=== PATIENT | female | born 2005 | race Caucasian/White ===

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

== ENCOUNTER → 2023-07-13 15:03 | Outpatient (BNVA) | payer MEDICAID, SELFPAY | PROVIDERS: Referring Provider Nurse Practitioner Family; Visit Provider Nurse Practitioner Women's Health | DX: N92.6 Irregular menstruation, unspecified (principal) | CPT/HCPCS: 83036; 83525; 84146; 84403; 84443 ==

== ENCOUNTER → 2023-10-26 13:50 | Outpatient (BNVA) | payer BC, MEDICAID, SELFPAY | PROVIDERS: PCP Nurse Practitioner Women's Health; Visit Provider Nurse Practitioner Women's Health | DX: R79.89 Other specified abnormal findings of blood chemistry (principal) | CPT/HCPCS: 84402; 84403 ==

== ENCOUNTER 2024-05-25 18:15 | Emergency (ER) | payer BC, MEDICAID, SELFPAY ==
[2024-05-25 18:33] VITALS: BP 143/82; PULSE 116; RESP 16; TEMP 36.4; O2SAT 98; BMI 32.8
--- NOTE | 2024-05-25 18:39 | CTR_ITS ---
PROCEDURE INFORMATION: Exam: CT Head Without Contrast Exam date and time: 05/25/2024 7:14 PM Age: 18 years old Clinical indication: Syncope and collapse; Additional info: Syncop(e TECHNIQUE: Imaging protocol: Computed tomography of the head without contrast. Axial, coronal and sagittal reformatted images were created and reviewed. Radiation optimization: All CT scans at this facility use at least one of these dose optimization techniques: automated exposure control; mA and/or kV adjustment per patient size (includes targeted exams where dose is matched to clinical indication); or iterative reconstruction. COMPARISON: No relevant prior studies available. RADIATION DOSE METRICS: Total DLP (mGy-cm): 1000.75 FINDINGS: Brain: No CT evidence of acute intracranial hemorrhage or acute territorial infarction. No significant mass effect or midline shift. Basal cisterns patent. Cerebral ventricles: Normal in size and configuration. Paranasal sinuses: Unremarkable. No fluid levels. Mastoid air cells: Grossly unremarkable. Bones: Unremarkable. No acute fracture. Soft tissues: Grossly unremarkable. CT/CT head wo con* [id number] IMPRESSION: No CT evidence of acute intracranial pathology.
[2024-05-25 18:49] LABS: HCG Qualitative Urine. Negative (Negative)
--- NOTE | 2024-05-25 18:59 | ECG_ITS ---
TreatFeed Test Date: 2024-05-25 Pat Name: Asia Dodd Department: Room: Gender: Female Instrument Sterilizer: : 2005 Requested By: Carlos Olmstead Order Number: [id number] Ariel MD: VERN OSHEA Measurements Intervals Hermann Rate: 104 P: 72 MS: 130 QRS: 91 QRSD: 86 T: 28 QT: 329 QTc: 434 Interpretive Statements SINUS TACHYCARDIA POSSIBLE LEFT ATRIAL ENLARGEMENT [-0.1mV P-WAVE IN V1/V2] BORDERLINE RIGHT AXIS DEVIATION [QRS AXIS > 90] NONSPECIFIC ST & T-WAVE ABNORMALITY ABNORMAL RHYTHM ECG No previous ECG available for comparison Electronically Signed On 05-27-2024 19:28:56 [employer] by VERN OSHEA [email or web address]
[2024-05-25 19:06] LABS: Bilirubin Urine Negative (Negative); Blood Urine Negative (Negative); Glucose Urine UA Negative (Normal); Ketones Urine Negative (Negative); Leukocyte Esterase Urine Negative (Negative); Nitrate Urine Negative (Negative); Protein Urine Negative (Negative); Specific Gravity, Urine 1.002 (1.005-1.030); Urine Appearance Clear (CLEAR); Urine Color Yellow (Yellow); Urobilinogen Urine 0.2 mg/dL (Negative); pH Urine 7.5 (5-7)
[2024-05-25 19:10] LABS: Bacteria Urine None Seen /hpf; Hyaline Casts Urine 0-4 /lpf; RBC Urine 0-2 /hpf (0-2); Squamous Epithelial Cell Urine 0-5 /hpf (0-5); WBC Urine 0-5 /hpf (0-5)
[2024-05-25 19:13] LABS: Amphetamines Screen Urine Negative (Negative); Barbiturates Screen Urine Negative (Negative); Benzodiazepines Screen Urine Negative (Negative); Cocaine Screen Urine Negative (Negative); Opiate Screen Urine Negative (Negative); PCP Screen Urine Negative (Negative); THC Screen Urine Negative (Negative)
[2024-05-25 19:41] LABS: Influenza A NEGATIVE (Negative); Influenza B NEGATIVE (Negative); Respiratory Syncytial Virus Ce NEGATIVE (Negative); SARS-CoV-2 PCR NEGATIVE (Negative)
[2024-05-25 20:08] LABS: Basophils % 0.4 %; Eosinophils # 0.1 10^3/uL (0.0-0.8); Eosinophils % 1.3 %; Hematocrit 38.8 % (36-47); Lymphocytes # 1.1 10^3/uL (1.5-6.5); Lymphocytes % 20.1 %; Mean Corpuscular HGB Conc 33.8 g/dL (30-55); Mean Corpuscular Volume 85.8 fl (85-98); Mean Platelet Volume 10.1 fL (7.4-10.4); Monocytes # 0.2 10^3/uL (0.2-0.9); Monocytes % 4.5 %; Neutrophils # 3.94 10^3/uL (1.8-8.0); Neutrophils % 73.5 %; Nucleated Red Blood Cells % 0 %; Platelet Count 262 10^3/cmm (157-399); Red Blood Count 4.52 10^6/uL (3.85-5.65); Red Cell Distribution Width 11.7 % (12.1-15.1); White Blood Count 5.36 10^3/uL (4.5-13.0)
--- NOTE | 2024-05-25 20:23 | ED_ITS ---
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 She also noticed that her pupils were different sizes today. She has felt like passing out but has not passed out. She denies any nausea or vomiting. She is being treated with amoxicillin for group b strep infection in her vagina. She denies any numbness. She has had generalized weakness but denies any unilateral weakness. She states she has had some nasal drainage and a mild cough with some intermittent wheezing although she does not have any wheezing at this time. She presents to the emergency department with her mother for further evaluation and treatment. Associated symptoms: Reports nasal congestion and palpitations; Denies chest pain, chills, headache(s), nausea or vomiting Associated neuro symptoms: Deny dysphagia Related Data Previous Rx's ?Medication ?Instructions ?Recorded drospirenone 3 mg-ethinyl 1 tab PO DAILY #84 tabs 11/0 10/03 estradiol 0.03 mg tablet (Megha (28)) meclizine 25 mg tablet 25 mg PO TID PRN dizziness # 15 tabs 05/25/24 Allergies Allergy/AdvReac Type Severity Reaction Status Date / Time Milk Containing Products Allergy Mild ALGY-Hives Verified 12/02/23 07:29 (Dairy) wheat Allergy Mild ALGY-Hives Verified 12/02/23 07:29 Review of Systems 2 Const: Denies: fever(s) or chills Eyes: Reports: other (Different sized pupils) ENMT: Reports: ear or mastoid pain and nasal congestion; Denies: throat pain Card: Reports: palpitations; Denies: chest pain or edema Resp: Reports: non-productive cough and wheezing (Intermittent, none now) GI: Reports: abdominal pain; Denies: nausea, vomiting, dysphagia or diarrhea : Denies: flank pain, difficulty voiding, dysuria or urinary frequency Musc: Denies: neck pain, back pain, extremity pain or extremity swelling Skin/Breast: Denies: rash or erythema Neuro: Reports: dizziness; Denies: headache(s) or sensory changes Psych: Denies: anxiety or depression Endo: Denies: polyuria or polydipsia [place]ver/Lymph: Denies: petechiae All/Imm: Denies: urticaria, throat swelling or tongue swelling PFSH ED 2 PFSH: Medical History Gvetq-Yyyskqqom-Dsive syndrome Surgical History (Updated 05/25/24 @ 20:31 by MIHAELA Lindsay) H/O cardiac radiofrequency ablation for white ogldman parkinsons disease Family History Grandmother Hypertension Diabetes Father Diabetes Denies family history of Colon cancer Ovarian cancer Heart disease Hyperlipidemia Breast cancer Uterine cancer Thyroid disease Stroke Social History Smoking and tobacco/nicotine status: never used tobacco/nicotine Alcohol intake: never Female Reproductive History: Date of last menstrual period: 05/12/24 Physical Exam 2 Const: COMMON NORMALS: no acute distress and patient oriented x3 EXAM LIMITATIONS: no altered mental status GENERAL APPEARANCE: cooperative O RIENTATION/CONSCIOUSNESS: Yes awake, Yes oriented to person, Yes oriented to place and Yes oriented to time; not confused HENMT: COMMON NORMALS: normocephalic, atraumatic, external ears normal, EAC's normal, TM's normal bilaterally and Normal external nose present HEAD & SCALP: normocephalic and atraumatic FACE & SINUS: normal facial exam NOSE: Normal external nose present and Normal nares present EXTERNAL EAR: Yes external ears normal EXTERNAL AUDITORY CANAL: EAC's normal TYMPANIC MEMBRANE: TM's normal bilaterally MOUTH: Normal oral and palatal mucosa present THROAT: posterior oropharynx normal Eye: COMMON NORMALS: negative for Equal, round and reactive pupils present (The left pupil is a little bit bigger than the right but they are RRL), EOMs intact bilaterally and conjunctivae normal GENERAL EYE: normal light reflex ALIGNMENT: Yes alignment normal EYELID: eyelids normal CONJUNCTIVA: Yes conjunctivae normal PUPIL: No Equal, round and reactive pupils present (The left pupil is a little bit bigger than the right but they are RRL) DIRECT OPHTHALMOSCOPY: Yes normal light reflex Neck/C-Spine: COMMON NORMALS: full ROM, supple and no meningeal signs G ENERAL: Yes normal visual inspection, No anterior neck swelling, No lymphadenopathy and No tender CERVICAL SPINE: Yes cervical ROM normal and Yes normal cervical lordosis Resp: COMMON NORMALS: normal respiratory effort, No retractions and clear to auscultation bilaterally AUSCULTATION: clear to auscultation bilaterally, no crackles, no rales, no rhonchi and no wheezes Cardio: COMMON NORMALS: regular rate (HR was 84 on exam) and regular rhythm RATE: regular rate (HR was 84 on exam) RHYTHM: regular rhythm GI: COMMON NORMALS: Normal to inspection, nondistended, normoactive bowel sounds present, Soft to palpation and non-tender PALPATION: Yes Soft to palpation : COMMON NORMALS: Yes no CVA tenderness BLADDER/KIDNEY EXAM: Yes no CVA tenderness Back/Pelvis: COMMON NORMALS: no CVA tenderness, no thoracic nor lumbar tenderness and thoraco-lumbar ROM normal Extremity: COMMON NORMALS: full ROM, no calf tenderness and no pedal edema Neuro: COMMON NORMALS: patient oriented x3, no focal motor deficits and no sensory deficits noted SENSORIUM/ORIENTATION: Yes oriented to person, Yes oriented to place and Yes oriented to time MENINGEAL SIGNS: Yes no meningeal signs CRANIAL NERVES: Yes pupillary reactivity/size (Anisocoria noted, the left pupil was slightly larger than right) COORDINATION/BALANCE: f [id number] test normal SPEECH: speech normal SENSORY EXAM: Yes extremities MOTOR EXAM: 5/5 motor strength present throughout, Pronator motor function not present and no tremor noted COORDINATION: [id number] test normal Psych: COMMON NORMALS: mental status grossly normal and speech normal A TTITUDE: Yes calm SPEECH: Yes normal speech Skin: COMMON NORMALS: no rashes or lesions noted GENERAL SKIN EXAM: no rashes or lesions noted and no pallor Course 2 ED course: I discussed the case with Dr. Rice who agrees with the assessment and plan. He recommended outpatient follow-up with the neurologist for further evaluation and treatment. Vital Signs: Vital signs: Vital Signs Temperature 97.6 F 05/25/24 18:33 Pulse Rate 116 H 05/25/24 18:33 Respiratory Rate 16 05/25/24 18:33 Blood Pressure 143/82 05/25/24 18:33 Pulse Oximetry 98 05/25/24 18:33 Oxygen Delivery Me thod Room Air 05/25/24 18:33 MDM - Dizziness Medical Decision Making Patient and her mother were advised of the lab, exam and imaging findings. Thankfully, the patient does not have a mass in her brain that could be leading to the anisocoria or the dizziness. Her lab work was negative for influenza, COVID and RSV. She did have some mild hypocalcemia. I advised that she take some Tums with calcium to help with that. She will be prescribed meclizine to see if that will help with the dizziness. I recommended no work tomorrow and follow-up with her primary care provider and with the neurologist for further evaluation and treatment. She was advised to return to the emergency department with any worsening symptoms. The patient expressed understanding. Lab Data I reviewed the patient's lab results. 05/25/24 19:53 05/25/24 19:[address] 05/25/24 18:39 IMPRESSION: No CT evidence of acute intracranial pathology. Laboratory Results WBC 5.36 10^3/uL (4.5-13.0) 05/25/24 19:53 RBC 4.52 10^6/uL (3.85-5.65) 05/25/24 19:53 Hgb 13.10 g/dL (12.4-14.8) 05/25/24 19:53 Hct 38.8 % (36-47) 05/25/24 19:53 MCV 85.8 fl (85-98) 05/25/24 19:53 MCH 29.0 pg (27-33) 05/25/24 19:53 MCHC 33.8 g/dL (30-55) 05/25/24 19:53 RDW 11.7 % (12.1-15.1) L 05/25/24 19:53 Plt Count 262 10^3/cmm (157-399) 05/25/24 19:53 MPV 10.1 fL (7.4-10.4) 05/25/24 19:53 Neut % (Auto) 73.5 % 05/25/24 19:53 Lymph % (Auto) 20.1 % 05/25/24 19:53 [place] % (Auto) 4.5 % 05/25/24 19:53 Eos % (Auto) 1.3 % 05/25/24 19:53 Baso % (Auto) 0.4 % 05/25/24 19:53 Neut # (Auto) 3.94 10^3/uL (1.8-8.0) 05/25/24 19:53 Lymph # (Auto) 1.1 10^3/uL (1.5-6.5) L 05/25/24 19:53 [place] # (Auto) 0.2 10^3/uL (0.2-0.9) 05/25/24 19:53 Eos # (Auto) 0.1 10^3/uL (0.0-0.8) 05/25/24 19:53 Baso # (Auto) 0.0 10^3/uL (0.0-0.1) 05/25/24 19:53 Nucleated RBC % (auto) 0 % 05/25/24 19:53 Nucleated RBCs # 0.0 /100WBC 05/25/24 19:53 Sodium 140 mmol/L (136-145) 05/25/24 19:53 Potassium 3.9 mmol/L (3.5-5.1) 05/25/24 19:53 Chloride 105 mmol/L (98-107) 05/25/24 19:53 Carbon Dioxide 26 mmol/L (22-29) 05/25/24 19:53 Anion Gap 12.9 (5-19) 05/25/24 19:53 BUN 6 mg/dL (6-20) 05/25/24 19:53 Creatinine 0.5 mg/dL (0.5-0.9) 05/25/24 19:53 GFR Calculation 157.3 mL/min (90-130) H 05/25/24 19:53 Glucose 153 mg/dL (65-115) H 05/25/24 19:53 Calculated Osmolality 291 mOsm/kg (285-295) 05/25/24 19:53 Calcium 8.3 mg/dL (8.5-10.5) L 05/25/24 19:53 Total Bilirubin 0.2 mg/dL (0.15-1.2) 05/25/24 19:53 AST 23 U/L (0-32) 05/25/24 19:53 ALT 37 U/L (0-33) H 05/25/24 19:53 Alkaline Phosphatase 67 U/L (35-105) 05/25/24 19:53 Total Protein 6.6 g/dL (6.6-8.7) 05/25/24 19:53 Albumin 3.7 g/dL (3.5-5.2) 05/25/24 19:53 Globulin 2.9 g/dL (1.3-4.6) 05/25/24 19:53 HCG, Qual Negative (Negative) 05/25/24 18:39 Urine Color Yellow (Yellow) 05/25/24 18:39 Urine Appearance Clear (CLEAR) 05/25/24 18:39 Urine pH 7.5 (5-7) 05/25/24 18:39 Ur Specific [place] 1.002 (1.005-1.030) L 05/25/24 18:39 Urine Protein Negative (Negative) 05/25/24 18:39 Urine Glucose (UA) Negative (Normal) 05/25/24 18:39 Urine Ketones Negative (Negative) 05/25/24 18:39 Urine Blood Negative (Negative) 05/25/24 18:39 Urine Nitrate Negative (Negative) 05/25/24 18:39 Urine Bilirubin Negative (Negative) 05/25/24 18:39 Urine Urobilinogen 0.2 mg/dL (Negative) 05/25/24 18:39 Ur Leukocyte Esterase Negative (Negative) 05/25/24 18:39 Urine RBC 0-2 /hpf (0-2) 05/25/24 18:39 Urine WBC 0-5 /hpf (0-5) 05/25/24 18:39 Ur Squamous Epith Cells 0-5 /hpf (0-5) 05/25/24 18:39 Amorphous Sediment Not Reportable 05/25/24 18:39 Urine Bacteria None seen /hpf (NONE) 05/25/24 18:39 Hyaline Casts 0-4 /lpf H 05/25/24 18:39 Urine Opiates Screen Negative ng/mL (Negative) 05/25/24 18:39 Ur Barbiturates Screen Negative ng/mL (Negative) 05/25/24 18:39 Ur Phencyclidine Scrn Negative ng/mL (Negative) 05/25/24 18:39 Ur Amphetamines Screen Negative ng/mL (Negative) 05/25/24 18:39 U Benzodiazepines Scrn Negative ng/mL (Negative) 05/25/24 18:39 Urine Cocaine Screen Negative ng/mL (Negative) 05/25/24 18:39 U Marijuana (THC) Screen Negative ng/mL (Negative) 05/25/24 18:39 Coronavirus (PCR) Negative (Negative) 05/25/24 18:39 Influenza A (PCR) Negative (Negative) 05/25/24 18:39 Influenza Type B (PCR) Negative (Negative) 05/25/24 18:39 RSV (PCR) Negative (Negative) 05/25/24 18:39 All radiology interpretation(s) finalized by discharge EKG Data EKG 1: I personally reviewed and interpreted this EKG as follows: Interpretation: Rate 104, sinus tachycardia, borderline right axis deviation with a QRS axis of 91, no ST elevation or signs of STEMI. Critical Care Time 2 Critical Care Time: Critical Care Time: No Discharge Plan Discharge Patient Disposition: Home Clinical Impression: Dizziness, Anisocoria, Hypocalcemia, Generalized weakness Condition: Stable Prescriptions: New meclizine 25 mg tablet 25 mg PO TID PRN (Reason: dizziness) Qty: 15 0RF No Action drospirenone-ethinyl estradiol [Megha (28)] 3-0.03 mg tablet 1 tab PO DAILY Qty: 84 3RF Discharge Orders: Discharge ED (Routine); Ordered 05/25/24 Ordered By: Castillo Velez Referrals: Patsy Lofton FNP [Primary Care Provider] - Negrita Lares MD [Physician] - 2 weeks Discharge Diet: Advance as tolerated Discharge Activity: Resume usual activity Patient Instructions: Opioid Safety, Pain Management, Dizziness (ED) Activity Restrictions/Additional Instructions: Take medications as directed. Do not drive while taking this medication. Rest, continue to drink plenty of fluids. Follow-up with your doctor in 1 week for recheck. Follow-up with the neurologist for further evaluation and treatment. Call for an appointment. No work tomorrow. Return to the emergency department with any worsening symptoms. Stand Alone Forms: Work/School Release Print Language: Iranian Coding Level of Care Code ED Cardiac Catheterization Technician for [employer]
[2024-05-25 20:30] LABS: Alanine Aminotransferase 37 U/L (0-33); Albumin Level 3.7 g/dL (3.5-5.2); Alkaline Phosphatase 67 U/L (35-105); Anion Gap 12.9 (5-19); Aspartate Amino Transferase 23 U/L (0-32); Blood Urea Nitrogen 6 mg/dL (6-20); Calcium 8.3 mg/dL (8.5-10.5); Carbon Dioxide 26 mmol/L (22-29); Chloride 105 mmol/L (98-107); Creatinine Clr Calc Pharmacy 212.6745; Globulin 2.9 g/dL (1.3-4.6); Glomerular Filtration Rate 157.3 mL/min (90-130); Glucose 153 mg/dL (65-115); Osmolality Calculated 291 mOsm/kg (285-295); Potassium 3.9 mmol/L (3.5-5.1); Sodium 140 mmol/L (136-145); Total Bilirubin 0.2 mg/dL (0.15-1.2); Total Protein 6.6 g/dL (6.6-8.7)
[2024-05-25 22:38] VITALS: BP 126/88; PULSE 80; RESP 16; O2SAT 97
== END 2024-05-25 22:38 | disposition home or self-care (01) ==
PROVIDERS: Emergency Medicine; Emergency Provider Physician Assistant; PCP Nurse Practitioner Family
DX: R42 Dizziness and giddiness (principal); H57.02 Anisocoria; E83.51 Hypocalcemia; R53.1 Weakness; Z11.52 Encounter for screening for COVID-19
CPT/HCPCS: 12345; 36415; 70450; 80053; 80306; 81001; 81025; 85025; 87637; 93005; 99284